=== PATIENT | female | born 2000 | race Caucasian/White ===

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

== ENCOUNTER 2021-09-25 12:14 | Emergency (ER) | payer MEDICAID ==
[~2021-09-25] VITALS: Ht 157.5 cm; Wt 89.1 kg
[2021-09-25] MEDS ORDERED: vancomycin/NS 1 GM ADD-VANTAGE 250 ML IV ONE (13:05)
[2021-09-25] MEDS ORDERED: piperacillin/tazo 3.375gm/50ml 50 ML IV ONE (13:05)
[2021-09-25 13:17] LABS: CLARITY,URINE SLIGHTLY CLOUDY (Clear); COLOR,URINE YELLOW (Yellow); GLUCOSE, URINE NEGATIVE (Neg); KETONES,URINE NEGATIVE (Neg); LEUKOCYTE ESTERASE ,URINE LARGE (Neg); NITRITES, URINE NEGATIVE (Neg); OCCULT BLOOD,URINE MODERATE (Neg); PH,URINE 6.5 (4.8-8.0); PROTEIN,URINE NEGATIVE (Neg); UROBILINOGEN,URINE 0.2 E.U/dL (0.2-1.0)
[2021-09-25 13:20] LABS: UA COLLECTION TYPE CLN CATCH MIDSTREAM
[2021-09-25 13:23] LABS: BACTERIA,URINE 2+ /HPF (Neg); MUCUS STRANDS FEW /LPF (Neg); SQUAMOUS EPITHELIAL CELL,UR MANY /LPF (FEW); WBC,URINE 30-50 /HPF (0-4)
[2021-09-25] MEDS ORDERED: iohexol 350MG/ML 100ml bottle IV ONE (13:23)
--- NOTE | 2021-09-25 13:48 | NUR ---
To ct at this time via [employer].
[2021-09-25 13:51] LABS: BASOPHILS # (AUTO) 0.1 X10'3 (0-0.2); BASOPHILS % (AUTO) 0.5 % (0-1); EOSINOPHILS # (AUTO) 0.1 X10'3 (0-0.9); EOSINOPHILS % (AUTO) 0.8 % (0-6); HEMATOCRIT 36.8 % (35.0-45.0); HEMOGLOBIN 12.2 g/dl (12.0-16.0); LYMPHOCYTES # (AUTO) 2.1 X10'3 (1.1-4.8); LYMPHOCYTES % (AUTO) 14.9 % (21-51); MEAN CORPUSCULAR HEMOGLOBIN 29.1 PG (27.0-31.0); MEAN CORPUSCULAR HGB CONC 33.2 g/dL (33.0-36.5); MEAN CORPUSCULAR VOLUME 87.7 FL (78-98); MEAN PLATELET VOLUME 8.6 FL (7.4-10.4); MONOCYTES # (AUTO) 1.4 X10'3 (0-0.9); MONOCYTES % (AUTO) 9.6 % (2-12); NEUTROPHILS # (AUTO) 10.6 X10'3 (1.8-7.7); NEUTROPHILS % (AUTO) 74.2 % (42-75); PLATELET COUNT 281 X10'3 (140-440); RED CELL DISTRIBUTION WIDTH 13.6 % (11.5-14.5); WHITE BLOOD COUNT 14.3 X10'3 (4.5-11.0)
[2021-09-25 14:07] LABS: ALANINE AMINOTRANSFERASE 15 U/L (12-78); ALBUMIN 3.3 G/DL (3.4-5.0); ALBUMIN/GLOBULIN RATIO 0.8 (1.1-1.5); ALKALINE PHOSPHATASE 112 IU/L (20-180); ANION GAP 11 (8-16); ASPARTATE AMINO TRANSFERASE 14 U/L (10-37); BLOOD UREA NITROGEN 8 MG/DL (7-18); BUN/CREATININE RATIO 10.4 (6.6-38.0); CALCIUM 8.8 MG/DL (8.5-10.1); CHLORIDE 104 MMOL/L (99-107); CREATININE 0.77 MG/DL (0.40-0.90); GLUCOSE 115 MG/DL (70-104); POTASSIUM 3.2 MMOL/L (3.5-5.1); SODIUM 139 MMOL/L (135-145); TOTAL CARBON DIOXIDE 23.8 MMOL/L (24-32); TOTAL PROTEIN 7.7 G/DL (6.4-8.2); eGFR > 90 ML/MIN
[2021-09-25] MEDS ORDERED: LEVO-65 PO (16:13)
[2021-09-25 16:29] VITALS: BP 119/71
== END 2021-09-25 16:32 | disposition home or self-care (01) ==
LOC: ER 12:15
DX: T81.9XXA Unspecified complication of procedure, initial encounter (principal); Z20.822 Contact with and (suspected) exposure to COVID-19; F41.9 Anxiety disorder, unspecified
CPT/HCPCS: 36415; 71045; 74177; 80053; 81001; 83605; 84145; 85025; 87040; 87811; 96365; 96366; 96368; 99285; J2543; J3370; J3490; Q9967

== ENCOUNTER 2023-09-19 20:30 | Emergency (ER) | payer MEDICAID ==
[~2023-09-19] VITALS: Ht 157.5 cm; Wt 90.9 kg
[2023-09-19 21:36] LABS: BASOPHILS # (AUTO) 0.1 X10'3 (0-0.2); BASOPHILS % (AUTO) 0.4 % (0-1); EOSINOPHILS % (AUTO) 0.2 % (0-6); HEMATOCRIT 39.2 % (35.0-45.0); HEMOGLOBIN 13.1 g/dl (12.0-16.0); LYMPHOCYTES # (AUTO) 1.3 X10'3 (1.1-4.8); MEAN CORPUSCULAR HEMOGLOBIN 28.5 PG (27.0-31.0); MEAN CORPUSCULAR HGB CONC 33.3 g/dL (33.0-36.5); MEAN CORPUSCULAR VOLUME 85.7 FL (78-98); MEAN PLATELET VOLUME 7.8 FL (7.4-10.4); MONOCYTES # (AUTO) 0.7 X10'3 (0-0.9); MONOCYTES % (AUTO) 4.9 % (2-12); NEUTROPHILS # (AUTO) 12.5 X10'3 (1.8-7.7); NEUTROPHILS % (AUTO) 85.5 % (42-75); PLATELET COUNT 302 X10'3 (140-440); RED BLOOD COUNT 4.57 X10'6 (4.20-5.60); RED CELL DISTRIBUTION WIDTH 13.3 % (11.5-14.5); WHITE BLOOD COUNT 14.7 X10'3 (4.5-11.0)
[2023-09-19 21:46] LABS: HCG SERUM QL NEGATIVE
[2023-09-19 21:50] LABS: APTT 25 SECONDS (22-32); PROTHROMBIN TIME 10.6 SECONDS (9.0-12.0)
[2023-09-19 22:00] LABS: ALANINE AMINOTRANSFERASE 47 U/L (12-78); ALBUMIN 4.1 G/DL (3.4-5.0); ALBUMIN/GLOBULIN RATIO 0.9 (1.1-1.5); ALKALINE PHOSPHATASE 106 IU/L (46-116); ANION GAP 10 (8-16); ASPARTATE AMINO TRANSFERASE 23 U/L (10-37); BILIRUBIN,TOTAL 1.2 MG/DL (0.1-1.0); BLOOD UREA NITROGEN 19 MG/DL (7-18); BUN/CREATININE RATIO 17.8 (10.0-20.0); CALCIUM 9.4 MG/DL (8.5-10.1); CHLORIDE 103 MMOL/L (99-107); CREATININE 1.07 MG/DL (0.40-0.90); GLUCOSE 127 MG/DL (70-104); LIPASE 50 U/L (16-77); POTASSIUM 3.7 MMOL/L (3.5-5.1); SODIUM 137 MMOL/L (135-145); TOTAL CARBON DIOXIDE 23.8 MMOL/L (24-32); TOTAL PROTEIN 8.7 G/DL (6.4-8.2); eCRCL 65 ML/MIN; eGFR 64 ML/MIN
[2023-09-19 22:53] VITALS: TEMP 98.9
[2023-09-19 23:20] LABS: BILIRUBIN,URINE NEGATIVE (Neg); CLARITY,URINE SLIGHTLY CLOUDY (Clear); COLOR,URINE YELLOW (Yellow); GLUCOSE, URINE NEGATIVE (Neg); KETONES,URINE 15 mg/dl (Neg); LEUKOCYTE ESTERASE ,URINE NEGATIVE (Neg); NITRITES, URINE NEGATIVE (Neg); OCCULT BLOOD,URINE MODERATE (Neg); PROTEIN,URINE NEGATIVE (Neg); UROBILINOGEN,URINE 0.2 E.U/dL (0.2-1.0)
[2023-09-19 23:21] LABS: UA COLLECTION TYPE VOIDED
[2023-09-19 23:25] LABS: BACTERIA,URINE 2+ /HPF (Neg); MUCUS STRANDS MANY /LPF (Neg); SQUAMOUS EPITHELIAL CELL,UR MANY /LPF (FEW); WBC,URINE 0-4 /HPF (0-4)
[2023-09-19 23:26] LABS: TRANSITIONAL EPI CELLS,URINE FEW /HPF
[2023-09-20] MEDS ORDERED: sildenafil citrate 20mg tablet PO SCH (00:30)
[2023-09-20] MEDS: ketorolac trometh. 30mg/ml inj. IV ONE (00:39)
[2023-09-20] MEDS: normal saline 1000ML IV soln IVB ONE (00:39)
[2023-09-20] MEDS: sildenafil citrate 20mg tablet PO ONE (00:52)
[2023-09-20 01:37] VITALS: BP 125/72; PULSE 82; O2SAT 100
[2023-09-20 01:38] VITALS: RESP 16
[2023-09-20] MEDS ORDERED: TADA5TAB2 PO (01:43)
[2023-09-20] MEDS ORDERED: NAPR-56 PO (01:43)
== END 2023-09-20 02:09 | disposition home or self-care (01) ==
LOC: ER 20:31
DX: N13.30 Unspecified hydronephrosis (principal); N23 Unspecified renal colic; R11.10 Vomiting, unspecified; F41.9 Anxiety disorder, unspecified; Z79.899 Other long term (current) drug therapy
CPT/HCPCS: 36415; 74176; 80053; 81001; 83690; 84703; 85025; 85610; 85730; 96361; 96374; 99285; J1885; J7030

== ENCOUNTER 2023-09-26 06:18 | Emergency (ER) | payer MEDICAID ==
[~2023-09-26] VITALS: Ht 157.5 cm; Wt 94.6 kg
[~2023-09-26 06:18] MED LIST: NAPR-56 PO; TADA5TAB2 PO
[2023-09-26 06:29] VITALS: TEMP 97.6
[2023-09-26 07:08] LABS: URINE HCG NEGATIVE (NEG)
[2023-09-26] MEDS ORDERED: FLO0.4C PO (07:08)
[2023-09-26] MEDS ORDERED: HYDR-3965 PO (07:08)
[2023-09-26 07:13] LABS: BILIRUBIN,URINE NEGATIVE (Neg); CLARITY,URINE SLIGHTLY CLOUDY (Clear); COLOR,URINE STRAW (Yellow); GLUCOSE, URINE NEGATIVE (Neg); KETONES,URINE NEGATIVE (Neg); LEUKOCYTE ESTERASE ,URINE NEGATIVE (Neg); NITRITES, URINE NEGATIVE (Neg); OCCULT BLOOD,URINE TRACE-INTACT (Neg); PROTEIN,URINE NEGATIVE (Neg); UROBILINOGEN,URINE 0.2 E.U/dL (0.2-1.0)
[2023-09-26 07:14] LABS: UA COLLECTION TYPE CLN CATCH MIDSTREAM
[2023-09-26 07:20] LABS: BASOPHILS # (AUTO) 0.1 X10'3 (0-0.2); BASOPHILS % (AUTO) 0.5 % (0-1); EOSINOPHILS # (AUTO) 0.2 X10'3 (0-0.9); EOSINOPHILS % (AUTO) 1.9 % (0-6); HEMATOCRIT 40.4 % (35.0-45.0); HEMOGLOBIN 13.2 g/dl (12.0-16.0); LYMPHOCYTES # (AUTO) 2.3 X10'3 (1.1-4.8); LYMPHOCYTES % (AUTO) 22.6 % (21-51); MEAN CORPUSCULAR HEMOGLOBIN 28.9 PG (27.0-31.0); MEAN CORPUSCULAR HGB CONC 32.6 g/dL (33.0-36.5); MEAN CORPUSCULAR VOLUME 88.7 FL (78-98); MEAN PLATELET VOLUME 8.1 FL (7.4-10.4); MONOCYTES # (AUTO) 0.8 X10'3 (0-0.9); NEUTROPHILS # (AUTO) 6.9 X10'3 (1.8-7.7); PLATELET COUNT 286 X10'3 (140-440); RED BLOOD COUNT 4.55 X10'6 (4.20-5.60); RED CELL DISTRIBUTION WIDTH 13.7 % (11.5-14.5); WHITE BLOOD COUNT 10.3 X10'3 (4.5-11.0)
[2023-09-26 07:22] LABS: SQUAMOUS EPITHELIAL CELL,UR MANY /LPF (FEW)
[2023-09-26 07:27] LABS: BACTERIA,URINE 1+ /HPF (Neg)
[2023-09-26 07:34] LABS: ALANINE AMINOTRANSFERASE 32 U/L (12-78); ALBUMIN 3.9 G/DL (3.4-5.0); ALKALINE PHOSPHATASE 98 IU/L (46-116); ANION GAP 8 (8-16); ASPARTATE AMINO TRANSFERASE 20 U/L (10-37); BILIRUBIN,TOTAL 1.2 MG/DL (0.1-1.0); BLOOD UREA NITROGEN 23 MG/DL (7-18); BUN/CREATININE RATIO 20.9 (10.0-20.0); CALCIUM 8.7 MG/DL (8.5-10.1); CHLORIDE 107 MMOL/L (99-107); GLUCOSE 118 MG/DL (70-104); LIPASE 63 U/L (16-77); POTASSIUM 3.7 MMOL/L (3.5-5.1); SODIUM 135 MMOL/L (135-145); TOTAL CARBON DIOXIDE 20.2 MMOL/L (24-32); eCRCL 63 ML/MIN; eGFR 62 ML/MIN
[2023-09-26] MEDS: ketorolac tromethamine 15mg/ml inj. IM ONE (07:37)
[2023-09-26] MEDS: ketorolac trometh. 30mg/ml inj. IM ONE (07:44)
[2023-09-26 08:22] VITALS: BP 106/76; PULSE 77; RESP 18; O2SAT 100
[2023-09-27] MEDS ORDERED: CEPH-585 PO (19:30)
== END 2023-09-26 08:36 | disposition home or self-care (01) ==
LOC: ER 06:18
DX: N23 Unspecified renal colic (principal); F41.9 Anxiety disorder, unspecified; Z79.1 Long term (current) use of non-steroidal anti-inflammatories (NSAID); Z79.899 Other long term (current) drug therapy; Z87.442 Personal history of urinary calculi
CPT/HCPCS: 36415; 80053; 81001; 81025; 83690; 85025; 96372; 99283; J1885

== ENCOUNTER 2023-09-27 17:21 | Emergency (ER) | payer MEDICAID ==
[~2023-09-27] VITALS: Ht 157.5 cm; Wt 95.3 kg
[~2023-09-27 17:21] MED LIST changes: +FLO0.4C PO; +HYDR-3965 PO
[2023-09-27 17:52] LABS: BILIRUBIN,URINE NEGATIVE (Neg); CLARITY,URINE SLIGHTLY CLOUDY (Clear); COLOR,URINE YELLOW (Yellow); GLUCOSE, URINE NEGATIVE (Neg); KETONES,URINE NEGATIVE (Neg); LEUKOCYTE ESTERASE ,URINE SMALL (Neg); NITRITES, URINE NEGATIVE (Neg); OCCULT BLOOD,URINE MODERATE (Neg); PROTEIN,URINE NEGATIVE (Neg); UROBILINOGEN,URINE 0.2 E.U/dL (0.2-1.0)
[2023-09-27 17:54] LABS: URINE HCG NEGATIVE (NEG)
[2023-09-27 17:56] LABS: UA COLLECTION TYPE CLN CATCH MIDSTREAM
[2023-09-27 17:57] LABS: BACTERIA,URINE FEW /HPF (Neg); RBC,URINE 0-2 /HPF (0-2); SQUAMOUS EPITHELIAL CELL,UR MODERATE /LPF (FEW); WBC,URINE 0-4 /HPF (0-4)
[2023-09-27 17:58] LABS: MUCUS STRANDS NONE SEEN /LPF (Neg)
[2023-09-27] MEDS: ondansetron 4mg rapidly disintigrating tab PO ONE (18:09)
[2023-09-27] MEDS: oxyCODONE/APAP 5-325mg tablet PO ONE (18:09)
[2023-09-27] MEDS: ketorolac trometh. 30mg/ml inj. IM ONE (18:10)
[2023-09-27] MEDS ORDERED: CEPH-585 PO (19:30)
[2023-09-27] MEDS: CefTRIAXone 1000mg IM Kit (w/lidocaine diluent) IM ONE (19:51)
[2023-09-27 20:09] VITALS: BP 118/77; PULSE 75; RESP 17; TEMP 98.4; O2SAT 98
== END 2023-09-27 20:10 | disposition home or self-care (01) ==
LOC: ER 17:22
DX: N39.0 Urinary tract infection, site not specified (principal); F41.9 Anxiety disorder, unspecified; Z79.2 Long term (current) use of antibiotics; Z79.899 Other long term (current) drug therapy
CPT/HCPCS: 81001; 81025; 87088; 96372; 99284; J0696; J1885

== ENCOUNTER 2023-12-08 01:36 | Emergency (ER) | payer MEDICAID ==
[~2023-12-08] VITALS: Ht 157.5 cm; Wt 100.0 kg
[~2023-12-08 01:36] MED LIST changes: +CEPH-585 PO; -FLO0.4C PO; -HYDR-3965 PO; -NAPR-56 PO; -TADA5TAB2 PO
[2023-12-08 03:00] LABS: BILIRUBIN,URINE NEGATIVE (Neg); CLARITY,URINE CLEAR (Clear); COLOR,URINE YELLOW (Yellow); GLUCOSE, URINE NEGATIVE (Neg); KETONES,URINE NEGATIVE (Neg); LEUKOCYTE ESTERASE ,URINE TRACE (Neg); NITRITES, URINE NEGATIVE (Neg); OCCULT BLOOD,URINE SMALL (Neg); PROTEIN,URINE NEGATIVE (Neg); UROBILINOGEN,URINE 0.2 E.U/dL (0.2-1.0)
[2023-12-08 03:03] LABS: UA COLLECTION TYPE CLN CATCH MIDSTREAM
[2023-12-08 03:05] LABS: BACTERIA,URINE 1+ /HPF (Neg); MUCUS STRANDS MODERATE /LPF (Neg); SQUAMOUS EPITHELIAL CELL,UR MANY /LPF (FEW); WBC,URINE 0-4 /HPF (0-4)
[2023-12-08] MEDS ORDERED: ketorolac trometh 15mg/ml vial 15 MG/ML ML IM ONE (04:25)
[2023-12-08] MEDS: HYDROcodone/acetaminophen 10/325mg tab PO ONE (04:30)
[2023-12-08] MEDS: ketorolac trometh 30MG/ML vial 30 MG/ML VIAL IM ONE (04:49)
[2023-12-08 04:53] VITALS: BP 121/73; PULSE 77; RESP 16; TEMP 98.5; O2SAT 99
== END 2023-12-08 04:55 | disposition home or self-care (01) ==
LOC: ER 01:37
DX: N23 Unspecified renal colic (principal); F41.9 Anxiety disorder, unspecified; Z79.2 Long term (current) use of antibiotics
CPT/HCPCS: 81001; 96372; 99283; J1885